=== PATIENT | male | born 2000 | race Hispanic/Latino ===

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

== ENCOUNTER 2024-02-22 15:41 | Emergency (ER) | payer SELFPAY ==
[2024-02-22] MEDS ORDERED: Bacitracin 1 PK ONE (16:11)
[2024-02-22] MEDS ORDERED: Lidocaine 1% w/Epinephrine 1:100K 20 ML VIAL ONE (16:12)
[2024-02-22] MEDS ORDERED: Boostrix 0.5 ML (Tdap) VIAL (>/=7 yrs of age) ONE (16:12)
== END 2024-02-22 16:15 | disposition home or self-care (01) ==
LOC: MADERS 15:41
DX: S01.81XA Laceration without foreign body of other part of head, initial encounter (principal); I10 Essential (primary) hypertension; W22.8XXA Striking against or struck by other objects, initial encounter
CPT/HCPCS: 12013; 90471; 90715